=== PATIENT | female | born 1995 | race American Indian/Alaskan Native ===

== ENCOUNTER 2016-07-25 11:13 | Emergency (ER) | payer MEDICAID ==
--- NOTE | 2016-07-25 11:32 | Emergency Department Report ---
Chief Complaint: Abdominal Pain Stated Complaint: TAMPON STUCK Time Seen by Provider: 07/25/16 11:28 - HPI History of Present Illness: 21 y/o female state after putting on tampon last night she awaken this am with abdominal cramping .pt state pain current 8/10 at present .pt complain of diarrhea .denies any prior medication at present . - ROS Review of Systems: per HPI - Exam Vital Signs: Vital Signs 07/25/16 11:16 Temperature 98.8 F Pulse Rate 89 Respiratory 18 Rate Blood Pressure 118/61 O2 Sat by Pulse 100 Oximetry Physical Exam: GENERAL: The patient is well-developed and well-nourished. Patient is in NAD. HENT: Normocephalic. Atraumatic. Patient has moist mucous membranes. Throat: No erythema, swelling or exudates. EYES: Extraocular motions are intact, PERRL NECK: Supple. No meningitic signs are noted. There is no adenopathy noted. CHEST/LUNGS: Clear to auscultation bilaterally. No wheezing, rales or rhonchi noted. There is no respiratory distress noted. HEART/CARDIOVASCULAR: Regular rate and rhythm. Normal S1 S2. No murmurs, rubs , clicks, or gallops. ABDOMEN: Abdomen is soft, nontender.. Bowel sounds normoactive. There is no abdominal distention. Negative rebound tenderness. : Deferred. SKIN: There is no rash. There is no edema. There is no diaphoresis. NEURO: The patient is A&Ox3. The patient has no focal neurologic deficits. MUSCULOSKELETAL: There is no tenderness or deformity. There is no limitation range of motion. PSYCH: Pt has appropriate mood and affect. MSE screening note: Focused history and physical exam performed. Due to findings the following was ordered: ED Disposition for MSE Condition: Stable Instructions: Abdominal Pain (ED)
[2016-07-25 11:53] LABS: Basophils % (Auto) 0.7 % (0.0-1.8); Eosinophils % (Auto) 0.9 % (0.0-4.3); Hemoglobin 11.1 gm/dl (10.1-14.3); Mean Corpuscular HGB Conc 33 % (30-34); Mean Corpuscular Hemoglobin 28 pg (28-32); Mean Corpuscular Volume 87 fl (79-97); Platelet Count 308 K/mm3 (140-440); Red Blood Count 3.93 M/mm3 (3.65-5.03); Red Cell Distribution Width 15.2 % (13.2-15.2); White Blood Count 7.5 K/mm3 (4.5-11.0)
[2016-07-25 12:13] LABS: Anion Gap 16 mmol/L; BUN/Creatinine Ratio 17.14; Blood Urea Nitrogen 12 mg/dL (7-17); Calcium 8.5 mg/dL (8.4-10.2); Carbon Dioxide 25 mmol/L (22-30); Glucose 100 mg/dL (65-100); Potassium 3.6 mmol/L (3.6-5.0); Sodium 137 mmol/L (137-145)
[2016-07-25] MEDS ORDERED: XYLOCAINE 1% MPF 5 mL INFILTRATI ONE (13:07)
[2016-07-25] MEDS ORDERED: ZITHROMAX PO ONE (13:07)
[2016-07-25] MEDS ORDERED: ROCEPHIN IM ONE (13:07)
--- NOTE | 2016-07-25 13:15 | Emergency Department Report ---
HPI - General Chief Complaint: Abdominal Pain Time Seen by Provider: 07/25/16 12:42 - HPI HPI: Chief complaint: Vaginal discharge and lost tampon HPI: Patient is 21 years old states she put a tampon in last night but couldn't find it this morning. Patient is been on her period for 3 days and 2 days prior to that she states she had a yellow vaginal discharge. Patient has mild dyspareunia. Patient states she was diagnosed with PID back in January of this year. Mode of arrival: private car Source: Patient old chart Began: See above Duration: 5 days Context: See above Quality: Mild lower abdominal dull pain Severity: 8 out of 10 Improved with: Nothing Worsened with: The above Associated signs and symptoms: Vomiting or diarrhea positive dysuria ED Past Medical Hx - Past Medical History Previous Medical History?: Yes Additional medical history: PID - Social History Smoking Status: Former Smoker Substance Use Type: None - Medications Home Medications: Home Medications Medication Instructions Recorded Confirmed Last Taken Type Naproxen [Naprosyn] 500 mg PO BID #30 tablet 07/12/16 Unknown Rx ED Review of Systems ROS: Stated complaint: TAMPON STUCK Other details as noted in HPI ROS Constitutional: No fever ENT: No uri symptoms Cardiovascular: No chest pain Respiratory: No sob or cough GI: No nausea vomiting or diarrhea : See HPI Skin: No rash Neuro: No focal weakness or numbness Psych: No depression [place]/lymph: No edema Physical Exam - Physical Exam Vital Signs: Vital Signs 07/25/16 11:16 Temperature 98.8 F Pulse Rate 89 Respiratory 18 Rate Blood Pressure 118/61 O2 Sat by Pulse 100 Oximetry Physical Exam: GENERAL: The patient is well-developed well-nourished . HEENT: Normocephalic. Atraumatic. Extraocular motions are intact. Patient has moist mucous membranes. NECK: Supple. No meningitic signs are noted. There is no adenopathy noted. CHEST/LUNGS: Clear to auscultation. There is no respiratory distress noted. HEART/CARDIOVASCULAR: Regular. There is no tachycardia. There is no gallop rub or murmur. ABDOMEN: Abdomen is soft, nontender. Patient has normal bowel sounds. There is no abdominal distention. : Minimal menstrual bleeding, no foreign body, os closed minimal cervical motion tenderness. No adnexal tenderness or masses. SKIN: There is no rash. There is no edema. There is no diaphoresis. NEURO: The patient is awake, alert, and oriented. The patient is cooperative. The patient has no focal neurologic deficits. The patient has normal speech. MUSCULOSKELETAL: There is no tenderness or deformity. There is no limitation range of motion. There is no evidence of acute injury. ED Course Vital Signs 07/25/16 11:16 Temperature 98.8 F Pulse Rate 89 Respiratory 18 Rate Blood Pressure 118/61 O2 Sat by Pulse 100 Oximetry - Reevaluation(s) Reevaluation #1: 07/25/16 13:34 Patient given 250 mg of IM Rocephin and 2 g of oral Zithromax. ED Medical Decision Making - Lab Data Result diagrams: 07/25/16 11:37 07/25/16 11:37 Wet prep negative Critical care attestation.: If time is entered above; I have spent that time in minutes in the direct care of this critically ill patient, excluding procedure time. ED Disposition Clinical Impression: Cervicitis Disposition: DISCHARGED TO HOME OR SELFCARE Is pt being admited?: No Does the pt Need Aspirin: No Condition: Stable Instructions: Cervicitis (ED) Referrals: PRIMARY CAREMD [Primary Care Provider] - 3-5 Days [facility] [Provider Group] - 7-10 days Forms: STI Treatment and Prevention Time of Disposition: 14:09
[2016-07-25 13:53] LABS: Bacteria,Urine 2+ /HPF (Negative); Bilirubin,Urine NEG (Negative); Blood,Urine LG (Negative); Ketones,Urine NEG (Negative); Leukocyte Esterase,Urine TR (Negative); Mucus,Urine FEW /HPF; Nitrite,Urine NEG (Negative); Protein,Urine <15 mg/dL mg/dL (Negative)
[2016-07-25 13:56] LABS: RBC,Urine > 182.0 /HPF (0.0-6.0)
[2016-07-25 14:29] VITALS: BP 120/87
== END 2016-07-25 14:29 | disposition home or self-care (01) ==
LOC: ED 11:13
DX: N72 Inflammatory disease of cervix uteri (principal); Z87.891 Personal history of nicotine dependence
CPT/HCPCS: 36415; 80048; 81001; 84703; 85025; 87210; 87591; 96372; 99284; J0696

== ENCOUNTER 2016-09-19 23:09 | Emergency (ER) | payer SELFPAY ==
[2016-09-20 00:16] VITALS: BP 106/70
[2016-09-20 02:49] LABS: Bacteria,Urine 2+ /HPF (Negative); Bilirubin,Urine NEG (Negative); Blood,Urine NEG (Negative); Ketones,Urine NEG (Negative); Leukocyte Esterase,Urine TR (Negative); Mucus,Urine FEW /HPF; Nitrite,Urine NEG (Negative); Protein,Urine <15 mg/dL mg/dL (Negative)
== END 2016-09-20 02:35 | disposition left against medical advice (07) ==
LOC: ED 23:09
DX: N89.8 Other specified noninflammatory disorders of vagina (principal); Z53.21 Procedure and treatment not carried out due to patient leaving prior to being seen by health care provider
CPT/HCPCS: 81001; 81025

== ENCOUNTER 2018-01-09 20:02 | Emergency (ER) | payer SELFPAY ==
[2018-01-09 20:28] VITALS: BP 125/78
[2018-01-09 21:24] LABS: Hematocrit 36.4 % (30.3-42.9); Hemoglobin 11.9 gm/dl (10.1-14.3); Mean Corpuscular HGB Conc 33 % (30-34); Mean Corpuscular Hemoglobin 28 pg (28-32); Mean Corpuscular Volume 86 fl (79-97); Platelet Count 500 K/mm3 (140-440); Red Blood Count 4.24 M/mm3 (3.65-5.03); Red Cell Distribution Width 14.4 % (13.2-15.2)
[2018-01-09 21:38] LABS: BUN/Creatinine Ratio 10; Blood Urea Nitrogen 6 mg/dL (7-17); Calcium 9.8 mg/dL (8.4-10.2); Hemolysis Index 13
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
== END 2018-01-09 21:00 | disposition left against medical advice (07) ==
LOC: ED 20:02
DX: R51 Headache (principal); Z53.21 Procedure and treatment not carried out due to patient leaving prior to being seen by health care provider
CPT/HCPCS: 36415; 70450; 80048; 82962; 84702; 85027

== ENCOUNTER 2018-12-15 03:45 | Emergency (ER) | payer SELFPAY ==
[2018-12-15 03:53] VITALS: BP 152/102
== END 2018-12-15 05:00 | disposition left against medical advice (07) ==
LOC: ED 03:45
DX: K08.89 Other specified disorders of teeth and supporting structures (principal); Z53.21 Procedure and treatment not carried out due to patient leaving prior to being seen by health care provider

== ENCOUNTER 2020-01-09 23:43 | Emergency (ER) | payer MEDICAID ==
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
[2020-01-10 00:31] LABS: Hematocrit 30.3 % (30.3-42.9); Hemoglobin 9.8 gm/dl (10.1-14.3); Mean Corpuscular HGB Conc 32 % (30-34); Mean Corpuscular Volume 89 fl (79-97); Platelet Count 301 K/mm3 (140-440); Red Blood Count 3.43 M/mm3 (3.65-5.03)
[2020-01-10 01:14] LABS: Basophils % (Auto) 0.6 % (0.0-1.8); Eosinophils # (Auto) 0.1 K/mm3 (0.0-0.4); Eosinophils % (Auto) 0.8 % (0.0-4.3); Lymphocytes # (Auto) 2.6 K/mm3 (1.2-5.4); Lymphocytes % (Auto) 36.9 % (13.4-35.0); Monocytes # (Auto) 0.6 K/mm3 (0.0-0.8)
[2020-01-10 01:21] LABS: Alanine Aminotransferase 7 units/L (7-56); BUN/Creatinine Ratio 13; Blood Urea Nitrogen 8 mg/dL (7-17); Calcium 8.7 mg/dL (8.4-10.2); Hemolysis Index 6
[2020-01-10 02:19] VITALS: BP 128/74
[2020-01-10] MEDS ORDERED: HYDROmorphone 1 MG/1 ML INJ ONE (02:24)
[2020-01-10] MEDS ORDERED: HYDROmorphone 1 MG/1 ML INJ IM ONE (03:16)
[2020-01-10] MEDS ORDERED: HYDROmorphone 1 MG/1 ML INJ IV ONE (03:17)
--- NOTE | 2020-01-10 04:16 | Cat Scan Report ---
. CT HEAD WITHOUT CONTRAST INDICATION / CLINICAL INFORMATION: Head injury with L.O.C., now with headache, neck and facial pain.. TECHNIQUE: All CT scans at this location are performed using CT dose reduction for ALARA by means of automated e xposure control. COMPARISON: None available. FINDINGS: HEMORRHAGE: None. EXTRA-AXIAL SPACES: Normal in size and morphology for the patient's age. VENTRICULAR SYSTEM: Normal in size and morphology for the patient's age. CEREBRAL PARENCHYMA: No significant abnormality. No acute territorial infarct. MIDLINE SHIFT OR HERNIATION: None. CEREBELLUM / BRAINSTEM: No significant abnormality. ORBITS: Normal as visualized. SOFT TISSUES of HEAD: No significant abnormality. CALVARIUM: No significant abnormality. PARANASAL SINUSES / MASTOID AIR CELLS: Normal as visualized. ADDITIONAL FINDINGS: Right nasal piercing IMPRESSION: 1. No acute intracranial abnormality. Signer Name: Jens Templeton MD Signed: 01/10/2020 4:12 AM Workstation Name: [id number]
--- NOTE | 2020-01-10 04:17 | Cat Scan Report ---
CT MAXILLOFACIAL WITHOUT CONTRAST INDICATION / CLINICAL INFORMATION: Head injury with L.O.C., now with headache, neck and facial pain.. TECHNIQUE: All CT scans at this location are performed using CT dose reduction for ALARA by means of automated e xposure control. COMPARISON: None available. FINDINGS: FACIAL BONES: No fracture or other significant abnormality. PARANASAL SINUSES: No significant abnormality. ORBITS: No significant abnormality. VISUALIZED INTRACRANIAL STRUCTURES: No significant abnormality. ADDITIONAL FINDINGS: Right nasal piercing IMPRESSION: 1. No significant abnormality. Signer Name: Jens Templeton MD Signed: 01/10/2020 4:13 AM Workstation Name: [id number]
--- NOTE | 2020-01-10 04:19 | Cat Scan Report ---
CT CERVICAL SPINE WITHOUT CONTRAST INDICATION: Head injury with L.O.C., now with headache, neck and facial pain.. TECHNIQUE: All CT scans at this location are performed using CT dose reduction for ALARA by means of automated e xposure control. Axial CT images were obtained through the cervical spine. Sagittal and coronal reformatted images we re produced. COMPARISON: None available. FINDINGS: Fracture: None. Subluxation: None. Spinal canal: No significant compromise. Disc spaces: Normal. Facet joints: Normal. Paraspinal soft tissues: No soft tissue swelling. Normal. Additional findings: None. Lung apices: Normal. IMPRESSION: 1. No acute findings. Signer Name: Jens Templeton MD Signed: 01/10/2020 4:15 AM Workstation Name: [id number]
--- NOTE | 2020-01-10 04:23 | Cat Scan Report ---
CT CHEST WITH CONTRAST INDICATION / CLINICAL INFORMATION: Head injury with L.O.C., now with headache and chest pains. Omnipaque 300 / 100ml's was used for this exam.. TECHNIQUE: Axial CT images were obtained through the chest after 100 cc Omnipaque [address] scans at this location are performed using CT dose reduction for ALARA by means of automated exposure contr ol. COMPARISON: None available. FINDINGS: HEART: No significant abnormality. THORACIC AORTA: No significant abnormality. MEDIASTINUM and CECILLE: No significant abnormality. LUNGS: No acute air space or interstitial disease. PLEURA: No significant pleural effusion. No pneumothorax. ADDITIONAL FINDINGS: None. UPPER ABDOMEN: No significant abnormality. SKELETAL SYSTEM: No significant abnormality. IMPRESSION: 1. No significant abnormality. Signer Name: Jens Templeton MD Signed: 01/10/2020 4:19 AM Workstation Name: [id number]
== END 2020-01-10 05:14 | disposition home or self-care (01) ==
LOC: ED 23:43
DX: S06.0X9A Concussion with loss of consciousness of unspecified duration, initial encounter (principal); S13.9XXA Sprain of joints and ligaments of unspecified parts of neck, initial encounter; S20.219A Contusion of unspecified front wall of thorax, initial encounter; D64.9 Anemia, unspecified; F41.9 Anxiety disorder, unspecified; Z98.890 Other specified postprocedural states; Z79.899 Other long term (current) drug therapy; Y09 Assault by unspecified means; Y93.89 Activity, other specified; Y92.410 Unspecified street and highway as the place of occurrence of the external cause; Y99.8 Other external cause status
CPT/HCPCS: 36415; 70450; 70486; 71260; 72125; 80053; 84703; 85007; 85025; 96372; 96374; 99285; J1170; Q9967; 80320; G0480

== ENCOUNTER 2021-10-26 13:30 | Emergency (ER) | payer MEDICAID ==
[2021-10-26 18:44] LABS: Bilirubin,Urine NEG (Negative); Blood,Urine NEG (Negative); Color,Urine Yellow (Yellow); Protein,Urine <15 mg/dL mg/dL (Negative); Urobilinogen,Urine < 2.0 mg/dL (<2.0)
[2021-10-26 18:50] LABS: HCG Qualitative,Urine Negative (Negative)
[2021-10-26 18:58] VITALS: BP 110/75
[2021-10-26 19:04] LABS: Bacteria,Urine 1+ /HPF (Negative); Mucus,Urine FEW /HPF; Sperm,Urine FEW /HPF (NP)
[2021-10-26] MEDS ORDERED: LIDOCAINE-MPF (1%) 10 MG/1 ML VIAL 5 ML INFILTRATI ONE (19:06)
--- NOTE | 2021-10-26 19:10 | Emergency Department Report ---
ED Female HPI - General Chief complaint: Skin/Abscess/Foreign Body Stated complaint: TAMPON STUCK Time Seen by Provider: 10/26/21 18:31 Source: patient Mode of arrival: Ambulatory Limitations: No Limitations - History of Present Illness Initial comments: Patient is a 26-year-old female presents emergency room complaints of an odor from her vagina that began today. Patient states she had her menstrual cycle 2 weeks ago and was wearing tampons then. She states that today a tampon came out completely on its own that she did not realize was still in there. She has lower abdominal discomfort. She denies any fever, chills, nausea, vomiting, diarrhea, vaginal bleeding, dysuria. Past medical history of anxiety and PID. No allergies to medications. - Related Data Previous Rx's Medication Instructions Recorded Last Taken Type Acetaminophen/Codeine [Tylenol 1 tab PO Q4HR PRN #12 tablet 01/10/20 Unknown Rx /Codeine # 3 tab] Iron Fum,Ps/Folic/Bcomp,C No.9 1 each PO DAILY 30 Days #30 capsule 01/10/20 Unknown Rx [Integra Plus Capsule] Metaxalone [Skelaxin] 800 mg PO TID PRN #30 tablet 01/10/20 Unknown Rx Naproxen [Naprosyn TAB] 500 mg PO BID PRN #30 tablet 01/10/20 Unknown Rx Doxycycline Hyclate [Doxycycline 100 mg PO BID 10 Days #20 tab 10/26/21 Unknown Rx Hyclate TAB] metroNIDAZOLE [Flagyl] 500 mg PO BID 10 Days #20 tab 10/26/21 Unknown Rx Allergies Allergy/AdvReac Type Severity Reaction Status Date / Time No Known Allergies Allergy Verified 02/08/14 13:13 ED Review of Systems ROS: Stated complaint: TAMPON STUCK Other details as noted in HPI Comment: All other systems reviewed and negative ED Past Medical Hx - Past Medical History Hx Hypertension: No Hx Congestive Heart Failure: No Hx Diabetes: No Hx Deep Vein Thrombosis: No Hx Renal Disease: No Hx Sickle Cell Disease: No Hx Seizures: No Hx Psychiatric Treatment: Yes (anxiety) Hx Asthma: No Hx COPD: No Hx HIV: No Additional medical history: PID - Surgical History Additional Surgical History: c-sect x1, 2013 - Social History Smoking Status: Current Every Day Smoker Substance Use Type: None - Medications Home Medications: Home Medications Medication Instructions Recorded Confirmed Last Taken Type Acetaminophen/Codeine [Tylenol 1 tab PO Q4HR PRN #12 tablet 01/10/20 Unknown Rx /Codeine # 3 tab] Iron Fum,Ps/Folic/Bcomp,C No.9 1 each PO DAILY 30 Days #30 capsule 01/10/20 Unknown Rx [Integra Plus Capsule] Metaxalone [Skelaxin] 800 mg PO TID PRN #30 tablet 01/10/20 Unknown Rx Naproxen [Naprosyn TAB] 500 mg PO BID PRN #30 tablet 01/10/20 Unknown Rx Doxycycline Hyclate [Doxycycline 100 mg PO BID 10 Days #20 tab 10/26/21 Unknown Rx Hyclate TAB] metroNIDAZOLE [Flagyl] 500 mg PO BID 10 Days #20 tab 10/26/21 Unknown Rx ED Physical Exam - General Limitations: No Limitations General appearance: alert, in no apparent distress - Head Head exam: Present: atraumatic, normocephalic - Eye Eye exam: Present: normal appearance - ENT ENT exam: Present: mucous membranes moist - Respiratory Respiratory exam: Present: normal lung sounds bilaterally. Absent: respiratory distress, wheezes, rales, rhonchi, stridor, chest wall tenderness, accessory muscle use, decreased breath sounds, prolonged expiratory - Cardiovascular Cardiovascular Exam: Present: regular rate, normal rhythm, normal heart sounds. Absent: systolic murmur, diastolic murmur, rubs, gallop - GI/Abdominal GI/Abdominal exam: Present: soft, tenderness (suprapubic ), normal bowel sounds. Absent: distended, guarding, rebound, rigid - Neurological Exam Neurological exam: Present: alert, oriented X3 - Psychiatric Psychiatric exam: Present: normal affect, normal mood - Skin Skin exam: Present: warm, dry, intact ED Course Vital Signs 10/26/21 15:49 Temperature 98.0 F Pulse Rate 97 H Respiratory 20 Rate Blood Pressure 110/75 O2 Sat by Pulse 100 Oximetry ED Medical Decision Making - Medical Decision Making Patient is a 26-year-old female presents emergency room complaints of an odor from her vagina that began today. Patient states she had her menstrual cycle 2 weeks ago and was wearing tampons then. She states that today a tampon came out completely on its own that she did not realize was still in there. She has lower abdominal discomfort. She denies any fever, chills, nausea, vomiting, diarrhea, vaginal bleeding, dysuria. Past medical history of anxiety and PID. No allergies to medications. Vitals are normal. On exam patient is having suprapubic abdominal tenderness, no guarding, no rebound, no rigidity, no peritoneal signs. urine preg is negative. UA shows 1+ bacteria and sperm, no WBC, no RBC, no leukocyte esterase, no nitrites. pt given 1g IM rocephin. given prescription for doxycycline and flagyl. she is having no fever, no chills, no dysuria, no vomiting, she is tolerating po intake. advised pt Please take medication as prescribed to completion. Avoid sexual intercourse until you have completely finished medications. Please follow-up with MAIL DELIVERER. Please have a full STD panel performed by MAIL DELIVERER or clinic. Return to emergency room for any new or worsening symptoms. Critical care attestation.: If time is entered above; I have spent that time in minutes in the direct care of this critically ill patient, excluding procedure time. ED Disposition Clinical Impression: Vaginal odor Retained tampon Qualifiers: Encounter type: initial encounter Qualified Code(s): T19.2XXA - Foreign body in vulva and vagina, initial encounter Abdominal pain Qualifiers: Abdominal location: lower abdomen, unspecified Qualified Code(s): R10.30 - Lower abdominal pain, unspecified Disposition: 01 HOME / SELF CARE / HOMELESS Is pt being admited?: No Does the pt Need Aspirin: No Condition: Stable Instructions: Vaginal Foreign Body, Pelvic Inflammatory Disease Additional Instructions: Please take medication as prescribed to completion. Avoid sexual intercourse until you have completely finished medications. Please follow-up with MAIL DELIVERER. Please have a full STD panel performed by MAIL DELIVERER or clinic. Return to emergency room for any new or worsening symptoms. Prescriptions: Doxycycline Hyclate [Doxycycline Hyclate TAB] 100 mg PO BID 10 Days #20 tab metroNIDAZOLE [Flagyl] 500 mg PO BID 10 Days #20 tab Referrals: BOYD BOYER MD [Staff Physician] - 3-5 Days Forms: Work/School Release Form(ED) Time of Disposition: 19:09 Print Language: CITIZEN OF [place]
== END 2021-10-26 20:38 | disposition home or self-care (01) ==
LOC: ED 13:30
DX: T19.2XXA Foreign body in vulva and vagina, initial encounter (principal); R10.30 Lower abdominal pain, unspecified; F17.200 Nicotine dependence, unspecified, uncomplicated; X58.XXXA Exposure to other specified factors, initial encounter; Y93.89 Activity, other specified; Y92.89 Other specified places as the place of occurrence of the external cause; Y99.8 Other external cause status
CPT/HCPCS: 81001; 81025; 96372; 99283; J0696; J3490